=== PATIENT | female | born 1980 | race Two or more races ===

== ENCOUNTER 2025-01-12 20:27 | Emergency (ER) | payer OTHER ==
[2025-01-12 20:36] VITALS: BP 129/81; PULSE 68; RESP 18; TEMP 97.9; BMI 34.0
[2025-01-12] MEDS ORDERED: ACETAMINOPHEN 325 MG TABLET (FP) ONE (22:02)
[2025-01-12 22:03] LABS: ABSOLUTE IMMATURE GRANULOCYTES 0.05 x10^3/uL (0.0-0.031); BASOPHILS # 0.03 x10^3/uL (0.01-0.08); EOSINOPHIL % 1.2 % (0.7-5.8); EOSINOPHILS # 0.11 x10^3/uL (0.04-0.36); MCHC 31.7 g/dl (32.2-35.5); MEAN CELL VOLUME 85.5 fl (79.4-94.8); MEAN PLT VOLUME 9.2 fl (9.4-12.3); MONOCYTE # 0.88 x10^3/uL (0.24-0.86); MONOCYTE % 9.5 % (4.7-12.5); RDW 14.3 % (12.2-17.1)
[2025-01-12 22:13] LABS: INR 1.02 (0.83-1.09); PROTHROMBIN TIME (PATIENT) 11.2 SEC (9.7-13.0)
[2025-01-12 22:16] LABS: ACTIVATED PTT 28.9 SECONDS (25.2-36.5)
[2025-01-12] MEDS: ACETAMINOPHEN 325 MG TABLET (FP) PO ONE (22:19)
[2025-01-12 22:29] LABS: CO2 28.0 mmol/L (21-32)
[2025-01-12 22:30] LABS: GLUCOSE,RANDOM 87.0 mg/dL (74-106)
[2025-01-12 22:33] LABS: CREATININE 0.8 mg/dL (0.55-1.3); SGOT/AST 24.0 U/L (15-37); SGPT/ALT 44.0 U/L (13-61)
[2025-01-12 22:34] LABS: TOT PROT 7.1 g/dl (6.4-8.2)
[2025-01-12 22:35] LABS: ALK PHOS 92.0 U/L (45-117)
[2025-01-13 00:45] LABS: HIV INTERPRETATION NEGATIVE (NEGATIVE)
[2025-01-13 00:46] LABS: HCV DIAGNOSTIC IN-HOUSE W/RFLX NON-REACTIVE (NONREACTIVE)
== END 2025-01-12 23:35 | disposition home or self-care (01) ==
LOC: JER 20:27
DX: R60.0 Localized edema (principal); R42 Dizziness and giddiness; R11.0 Nausea
CPT/HCPCS: 36415; 71046-TC-FY; 80053; 83735; 83880; 84443; 84484; 85025; 85379; 85610; 85730; 86803; 86850; 86900; 86901; 87389; 87637-QW; 93005; 93010; 93970-TC; 99285-25